=== PATIENT | female | born 1995 ===

== ENCOUNTER 2020-01-12 10:48 | Emergency (ER) | payer OTHER ==
--- NOTE | 2020-01-12 11:05 | EDM.PDOC ---
ED HPI GENERAL MEDICAL PROBLEM - General Chief Complaint: ENT Problem Stated Complaint: throat pain /coughing Time Seen by Provider: 01/12/20 10:51 Source of Information: Reports: Patient, [employer] History Limitations: Reports: Language Barrier - History of Present Illness INITIAL COMMENTS - FREE TEXT/NARRATIVE: 24 yo F with no past medical history presents with constitutional symptoms, yesterday she started developing diffuse myalgia, generalized malaise, sore throat, dry cough, mild shortness of breath, bitemporal headache that comes and goes, rated at 3/10. She took Tylenol at 12:30 PM yesterday. She denies runny nose, rash, dysuria, neck pain or neck stiffness. 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 ROS: A 10-point review of systems, other than pertinent positives and negatives as stated per HPI, is otherwise negative PHYSICAL EXAM General: AOx4, GCS = 15, No distress HEENT: dry mucous membrane, bilateral TMs no erythema, cervical lymphadenopathy , trace erythema posterior oropharynx. Neck: supple, no meningismus, no Kernig or Brudzinski Cardiac: S1S2 RRR Respiratory: CTAB, no crackles or rales, no wheezing Abdomen: Soft, nontender, no rebound or guarding, nondistended, no pulsatile mass. Back: nontender Musculoskeletal: NVI distally, no deformity Neuro: No focal deficits. MEDICAL DECISION MAKING: I reviewed the patients past medical records, lab and radiographic findings. I discussed the case with family members. My differential diagnosis included: URI, strep, viral illness. Her strep was negative, her COVID swab was negative. I do not suspect meningitis on her examination. She was able to shake her head left and right in no distress. Her lungs were clear to auscultation with no signs of rales or crackles, I do not suspect underlying pneumonia. She was never hypoxic or tachypneic or retracting. headache Pain Score (Numeric/FACES): 2 - Related Data Allergies Allergy/AdvReac Type Severity Reaction Status Date / Time No Known Allergies Allergy Verified 01/12/20 11:04 Home Meds: Home Meds Naproxen [Naprosyn] 500 mg PO Q12HR #10 tab 01/12/20 [Rx] ED ROS GENERAL - Review of Systems Review Of Systems: See Below (see dictation) ED EXAM, GENERAL - Physical Exam Exam: See Below (see dictation) Course - Vital Signs Last Recorded V/S: Last Vital Signs Temp 97.1 F 01/12/20 11:03 Pulse 91 01/12/20 11:03 Resp 16 01/12/20 11:03 BP 112/76 01/12/20 11:03 Pulse Ox 98 01/12/20 11:03 - Orders/Labs/Meds Orders: Active Orders 24 hr Category Date Time Status CULTURE STREP A CONFIRMATION [RM] Stat Lab 01/12/20 11:27 Results STREP SCRN A RAPID W CULT CONF [RM] Stat Lab 01/12/20 11:27 Results Labs: Laboratory Tests 01/12/20 Range/Units 11:27 SARS-CoV-2 RNA (RT-PCR) NEGATIVE (NEGATIVE) - Re-Assessments/Exams Free Text/Narrative Re-Assessment/Exam: 01/12/20 12:06 After treatments and a prolonged observation period in the ER, the patient improved clinically and is stable for discharge. I performed a repeat examination and the patient has not demonstrated any new abnormal findings. Patient exhibits normal vital signs and has exhibited a normal gait. I advised the patient to return to the ER for reevaluation if symptoms worsened, and to follow up with their PCP within 2-3 days. Departure - Departure Time of Disposition: 12:06 Disposition: Home, Self-Care 01 Condition: Good Clinical Impression: Viral upper respiratory infection - Discharge Information *PRESCRIPTION DRUG MONITORING PROGRAM REVIEWED*: Not Applicable *COPY OF PRESCRIPTION DRUG MONITORING REPORT IN PATIENT RADHA: Not Applicable Prescriptions: Naproxen [Naprosyn] 500 mg PO Q12HR #10 tab Instructions: Viral Respiratory Infection, [id number]-Ghso Referrals: PCP,None [Primary Care Provider] - Forms: ED Department Discharge Additional Instructions: The following information is given to patients seen in the emergency department who are being discharged to home. This information is to outline your options for follow-up care. We provide all patients seen in our emergency department with a follow-up referral. The need for follow-up, as well as the timing and circumstances, are variable depending upon the specifics of your emergency department visit. If you don't have a primary care physician on staff, we will provide you with a referral. We always advise you to contact your personal physician following an emergency department visit to inform them of the circumstance of the visit and for follow-up with them and/or the need for any referrals to a consulting specialist. The emergency department will also refer you to a specialist when appropriate. This referral assures that you have the opportunity for follow-up care with a specialist. All of these measure are taken in an effort to provide you with optimal care, which includes your follow-up. Under all circumstances we always encourage you to contact your private physician who remains a resource for coordinating your care. When calling for follow-up care, please make the office aware that this follow-up is from your recent emergency room visit. If for any reason you are refused follow-up, please contact the [facility] Emergency Department at and asked to speak to the emergency department charge nurse. If you do not have a primary care doctor, please follow up with the clinics below within 3-5 days. [facility] - [facility] [address] [place] [id number] [facility] [address] [place] [id number] Sepsis Event Note (ED) - Focused Exam Vital Signs: Vital Signs Temp Pulse Resp BP Pulse Ox 01/12/20 11:03 97.1 F 91 16 112/76 98 - My Orders Last 24 Hours: My Active Orders 01/12/20 11:27 CULTURE STREP A CONFIRMATION [RM] Stat STREP SCRN A RAPID W CULT CONF [RM] Stat - Assessment/Plan Last 24 Hours: My Active Orders 01/12/20 11:27 CULTURE STREP A CONFIRMATION [RM] Stat STREP SCRN A RAPID W CULT CONF [RM] Stat
== END 2020-01-12 12:20 | disposition home or self-care (01) ==
LOC: MW.ED 10:48
DX: J06.9 Acute upper respiratory infection, unspecified (principal)
CPT/HCPCS: 87081; 87880-QW; 99282; 99283; U0002